=== PATIENT | female | born 1990 | race Caucasian/White ===

== ENCOUNTER 2018-01-07 11:12 | Inpatient (IN) | payer MEDICAID, SELFPAY ==
[2018-01-07 11:40] VITALS: BMI 30.4
[2018-01-07] MEDS ORDERED: Lactated Ringer's 1,000 ML IV SCH ×2 (13:15)
[2018-01-07] MEDS ORDERED: Oxytocin 30 units/LR 500ML 30 U/500 ML BAG IV ONE (13:33)
[2018-01-07 14:19] LABS: BASO % 0.4 % (0.0-2.0); EOS % 0.2 % (0.0-4.0); HEMOGLOBIN 10.7 g/dL (12.0-16.0); LYMPH # 1.2 K/uL (1.0-4.3); LYMPH % 13.1 % (20.0-40.0); MEAN CELL VOLUME 66.9 fl (81.0-99.0); MEAN CORPUSCULAR HGB CONC 31.4 g/dL (33.0-37.0); MEAN PLATELET VOLUME 9.5 fl (7.2-11.7); MONO # 0.4 K/uL (0.0-0.8); MONO % 3.9 % (0.0-10.0); NEUT # 7.8 K/uL (1.8-7.0); NEUT % 82.4 % (50.0-75.0); NRBC % 0.1 % (0.0-0.0); RBC 5.07 Mil/uL (3.80-5.20); RED CELL DISTRIBUTION WIDTH 18.6 % (11.5-14.5); WHITE BLOOD COUNT 9.5 K/uL (4.8-10.8)
--- NOTE | 2018-01-07 15:49 | OBADHP ---
Datetime: 01/07/2018 15:40 Admit Comment, IP Provider: 27 yo edc 02/10 @ 39.1wks presents w/ c/o painful ctx since this mor james. states last labor was 1hr. denies srom, bleeding or decreased fm. states ob hx is unremarkable Past history: Vaginal delivery times Past medical history: Denies Past surgical history: Denies No known drug allergies Social History: Denies alcohol and tobacco. Medications: vitamin Impression: labor Plan: Admit for expected vaginal delivery HBsAg Declines pain management IP Chief Complaint: Uterine contractions IP Adm Impression: Term, intrauterine IP Admit Plan: Admit to unit; Initiate labor protocol Datetime: 01/07/2018 13:10 Pelvic Type - PN: Adequate Abdomen - PN: Normal Neurologic - PN: Normal HEENT - PN: Normal General - PN: Normal Presentation-Admit: Vertex FHR - Baseline A Provider: 120 Membranes, Provider: Intact Comments, ACOG Physical Exam: GBS negative GC chlamydia negative in November 2007. RPR and HIV nonreactive September 2008 Rubella immune and varicella zoster nonimmune HCV neg A positive Vital Signs Provider: Reviewed; Within Normal Limits NICHD Variability Prov Fetus A: Moderate 6-25bpm NICHD Accel Fetus A IP Provider: 15X15 FHR Category Provider Fetus A: Category I NICHD Decel Fetus A IP Provider: None Dilatation, Provider: /- Genitourinary Exam: Normal
--- NOTE | 2018-01-07 16:10 | OBDS ---
DELIVERY PERSONNEL Delivery Doctor: Cole Johnson MD Poultry Farmworker: Brandie Francis RN MATERNAL INFORMATION Delivery Anesthesia: None Medications in Delivery: pitocin Estimated Blood Loss (ml): 300 Placenta Cultured: No Maternal Complications: None RN Comments: live girl @1343. Peds -Dr Steinberg called and present. 9:9 care given by Felicity snyder rn. Pt tolerated procedure very well. Provider Comments: IP DX:Grand Multip; labor PP DX: same Proced: ; plac delivered spont and intact OB : md nabeel findings: viable female, thick mecon, 9_9; efw:3420g neon remained in br w/ pt. ebl 300cc no complications LABOR SUMMARY EDC: 01/11/2018 00:00 No. Babies in Womb: 1 Attempted: No Labor Anesthesia: None LABOR INFORMATION Reason for Induction: Not Applicable Onset of Labor: 01/07/2018 09:00 Complete Dilatation: 01/07/2018 13:40 Oxytocin: N/A Group B Beta Strep: Negative Antibiotics # of Doses: none Steroids Given: None Reason Steroids Not Administered: Not Applicable MEMBRANES Membranes Rupture Method: Spontaneous Rupture of Membranes: 01/07/2018 13:43 Length of Rupture (hrs): 0.00 Amniotic Fluid Color: Light Meconium Amniotic Fluid Amount: Moderate Amniotic Fluid Odor: None STAGES OF LABOR Stage 1 hrs: 4 Stage 1 min: 40 Stage 2 hrs: 0 Stage 2 min: 3 Stage 3 hrs: 0 Stage 3 min: 4 Total Time in Labor hrs: 4 Total Time in Labor min: 47 VAGINAL DELIVERY Episiotomy: None Laceration Extension: N/A Laceration Type: None Laceration Repair: Not Applicable Sharps Count Correct: N/A CSECTION DELIVERY Primary Indication: N/A Secondary Indication: N/A CSection Urgency: N/A Labor: N/A BABY A INFORMATION Delivery Date/Time: 01/07/2018 13:43 Method of Delivery: Vaginal Born in Route : No : N/A Forceps: N/A Vacuum Extraction: N/A Shoulder Dystocia : No SHOULDER DYSTOCIA BABY A Infant Delivery Date/Time: 01/07/2018 13:43 PRESENTATION/POSITION BABY A Presentation: Cephalic Cephalic Presentation: Vertex Breech Presentation: N/A PLACENTA INFORMATION BABY A Placenta Delivery Time : 01/07/2018 13:47 Placenta Method of Delivery: Spontaneous Placenta Status: Delivered (Annotations: Data stored by [facility] on behalf of user) SCORES BABY A Heart Rate 1 min: >100 bpm Resp Effort 1 min: Good Cry Reflex Irritability 1 min: Cough or Sneeze or Pulls Away Muscle Tone 1 min: Active Motion Color 1 min: Body [place], Extremities Blue Resuscitation Effort 1 min: N/A SCORE 1 MIN: 9 Heart Rate 5 min: >100 bpm Resp Effort 5 min: Good Cry Reflex Irritability 5 min: Cough or Sneeze or Pulls Away Muscle Tone 5 min: Active Motion Color 5 min: Body [place], Extremities Blue Resuscitation Effort 5 min: N/A SCORE 5 MIN: 9 Heart Rate 10 min: >100 bpm Resuscitation Effort 10 min: Chemical Resuscitation INFANT INFORMATION BABY A Gestational Age at Delivery: 39+ Gestational Status: Term Outcome : Liveborn Condition : Stable Infant Sex: Female IDENTIFICATION/MEDS BABY A ID Band Number: [id number] ID Band Location: Left Leg; Left Arm WEIGHT/LENGTH BABY A Birthweight (gms): 3420gm CORD INFORMATION BABY A No. Cord Vessels: 3 Nuchal Cord : N/A Cord Blood Taken: Yes Suction: None; Mouth ASSESSMENT BABY A Complications: None Physical Findings at Delivery: Within Normal Limits Respirations: Appears Normal Handkerchief Sample Clerk/ALS Called : No Care By: Sabine talbert Transferred To: Remains with Mother
[2018-01-07] MEDS ORDERED: Oxycodone/Acetaminophen 5/325 mg Tab PO PRN (17:46)
[2018-01-08 06:45] LABS: BASO % 0.2 % (0.0-2.0); EOS # 0.1 K/uL (0.0-0.7); EOS % 1.6 % (0.0-4.0); HEMOGLOBIN 8.7 g/dL (12.0-16.0); LYMPH # 2.1 K/uL (1.0-4.3); LYMPH % 26.1 % (20.0-40.0); MEAN CELL VOLUME 66.6 fl (81.0-99.0); MEAN CORPUSCULAR HEMOGLOBIN 21.2 pg (27.0-31.0); MEAN CORPUSCULAR HGB CONC 31.9 g/dL (33.0-37.0); MONO # 0.6 K/uL (0.0-0.8); NEUT # 5.3 K/uL (1.8-7.0); NEUT % 65.1 % (50.0-75.0); NRBC % 0.1 % (0.0-0.0); RBC 4.08 Mil/uL (3.80-5.20); RED CELL DISTRIBUTION WIDTH 18.5 % (11.5-14.5); WHITE BLOOD COUNT 8.1 K/uL (4.8-10.8)
--- NOTE | 2018-01-08 09:40 | OBHP ---
Datetime: 01/07/2018 13:10 IP Adm Impression: Term, intrauterine IP Admit Plan: Admit to unit Admit Comment, IP Provider: 27 yo edc 02/10 @ 39.1wks presents w/ c/o painful ctx since this mor james. states last labor was 1hr. denies srom, bleeding or decreased fm. states ob hx is unremarkable Past history: Vaginal delivery times Past medical history: Denies Past surgical history: Denies No known drug allergies Social History: Denies alcohol and tobacco. Medications: vitamin Impression: labor Plan: Admit for expected vaginal delivery HBsAg Pelvic Type - PN: Adequate Abdomen - PN: Normal Neurologic - PN: Normal HEENT - PN: Normal General - PN: Normal Presentation-Admit: Vertex FHR - Baseline A Provider: 120 Membranes, Provider: Intact Comments, ACOG Physical Exam: GBS negative GC chlamydia negative in November 2007. RPR and HIV nonreactive September 2008 Rubella immune and varicella zoster nonimmune HCV neg A positive Vital Signs Provider: Reviewed; Within Normal Limits IP Chief Complaint: Uterine contractions NICHD Variability Prov Fetus A: Moderate 6-25bpm NICHD Accel Fetus A IP Provider: [id number] FHR Category Provider Fetus A: Category I NICHD Decel Fetus A IP Provider: None Dilatation, Provider: /-3 Genitourinary Exam: Normal
--- NOTE | 2018-01-08 11:26 | OBPPN ---
Datetime: 01/08/2018 07:00 PP Pain Prov: Within normal limits PP Nausea Prov: Denies PP Flatus Prov: No PP BM Prov: No PP Breasts Prov: Not Done PP Heart Prov: Normal PP Lungs Prov: Normal PP Abdomen/Uterus Prov: Normal PP Lochia Prov: Normal PP Vulva/Perineum Prov: Not Done PP CVA Tenderness Prov: Not Done PP Extremities Prov: Abnormal PP C/S Incision Prov: Not Applicable PP Progress Prov: Normal PP Comments Phys Exam Prov: right calf tenderness and pain PP Impression Prov: Pain PP Plan Prov: Continue present management PP Plan Other Prov: Venous Duplex lower extremity PP Progress Note Prov: 27 yo , s/p NVD, PPD 1. Pt seen and examined at bedside this am- she c omplained of right calf pain/tenderness. She also has some lower abdominal pain that is controlled by pain medication. She has ambulated to bathroom without difficulty and has voided, has not passed gas . States lochia is like menses in volume. She is tolerating regular diet without GI upset, and she is both breast and bottle feeding the baby. Denies dizziness, headache, fever, chest pain, shortness o f breath, nausea, vomiting. Gen: no acute distress, alert CV: S1S2, RRR Resp: normal effort of respiration, clear to auscultation bilaterally Abdomen: BS+, appropriate tenderness to palpation. Uterus is firm and at the level of the umbilic us. Ext: R calf tenderness and pain, no edema, A: 27 yo s/p NVD. PPD 1. P: Continue current post- management; order venous doppler of lower extremities. CBC pending. [id number] The patient was seen with the resident I agree with the note Vital Signs Provider PP: Reviewed; Within Normal Limits
--- NOTE | 2018-01-08 12:31 | US ---
PROCEDURE: Bilateral lower extremity venous duplex Doppler. HISTORY: Right calf pain, tenderness COMPARISON: None available. TECHNIQUE: Bilateral common femoral, superficial femoral, popliteal and posterior tibial veins were evaluated. Flow was assessed with color Doppler, compressibility, assessment of phasic flow and augmentation response. FINDINGS: COMMON FEMORAL VEIN: Right CFV: Normal direction of flow, compressibility and augmentation response. Left CFV: Normal direction of flow, compressibility and augmentation response. SUPERFICIAL FEMORAL VEIN: Right SFV: Normal direction of flow, compressibility and augmentation response. Left SFV: Normal direction of flow, compressibility and augmentation response. POPLITEAL VEIN: Right Popliteal: Normal direction of flow, compressibility and augmentation response. Left Popliteal: Normal direction of flow, compressibility and augmentation response. POSTERIOR TIBIAL VEIN: Right PTV: Normal direction of flow, compressibility and augmentation response. Left PTV: Normal direction of flow, compressibility and augmentation response. OTHER FINDINGS: None. IMPRESSION: No evidence of deep venous thrombosis.
[2018-01-09 19:22] VITALS: BP 112/54; PULSE 74; RESP 18; TEMP 98.1; O2SAT 100
== END 2018-01-09 13:50 | disposition home or self-care (01) | DRG 775 ==
LOC: H.EROB2 11:12 → H.EROB 13:01 → H.L&D 13:20 → H.OB/GYN 17:46
PROVIDERS: ADMIT Obstetrics & Gynecology; ATTEND Obstetrics & Gynecology
PROC: 10E0XZZ Delivery of Products of Conception, External Approach (ICD-10-PCS; principal; 2018-01-07)
PROC: 4A1HXCZ Monitoring of Products of Conception, Cardiac Rate, External Approach (ICD-10-PCS; 2018-01-07)
DX: O77.0 Labor and delivery complicated by meconium in amniotic fluid (principal); Z37.0 Single live birth; Z3A.39 39 weeks gestation of pregnancy